=== PATIENT | male | born 1985 | race Caucasian/White ===

== ENCOUNTER 2016-11-15 17:00 | Emergency (ER) | payer OTHER ==
[~2016-11-15] VITALS: Ht 193 cm; Wt 93.0 kg
[2016-11-15 17:29] LABS: URINE BILIRUBIN 1+ (Negative); URINE BLOOD TRACE (Negative); URINE COLOR YELLOW; URINE GLUCOSE-RANDOM* NEGATIVE (Negative); URINE KETONES NEGATIVE (Negative); URINE NITRITE NEGATIVE (Negative); URINE PROTEIN (DIPSTICK) TRACE (Negative)
[2016-11-15 17:33] LABS: ICTOTEST (BILI CONFIRMATORY) Negative (Negative)
[2016-11-15] MEDS ORDERED: AZITHROMYCIN 2250 MG PO (19:59)
[2016-11-15] MEDS ORDERED: MOBIC15 MG PO (20:01)
[2016-11-15 20:12] VITALS: BP 121/73
== END 2016-11-15 20:01 | disposition home or self-care (01) ==
LOC: ER 17:00
PROVIDERS: Physician Assistant
DX: N45.3 Epididymo-orchitis (principal); F10.99 Alcohol use, unspecified with unspecified alcohol-induced disorder